=== PATIENT | male | born 1965 | race Caucasian/White ===

== ENCOUNTER 2021-09-01 13:36 | Emergency (ER) | payer BC, SELFPAY ==
[2021-09-01 13:52] VITALS: BP 101/70; PULSE 104; RESP 18; TEMP 37.9; O2SAT 96; BMI 30.5
--- NOTE | 2021-09-01 13:57 | PC.NURSE ---
review with Dr. Kc about repeating COVID test. attempt to call [facility] for results
--- NOTE | 2021-09-01 15:37 | XRR_ITS ---
PROCEDURE INFORMATION: Exam: XR Chest Exam date and time: 09/01/2021 3:37 PM Age: 56 years old Clinical indication: Shortness of breath; Additional info: Evaluate for covid pna TECHNIQUE: Imaging protocol: XR of the chest. Views: 1 view. Other technique: Frontal portable upright view of the chest. COMPARISON: No relevant prior studies available. FINDINGS: Lungs: Moderate pulmonary hypoexpansion. Mild central right upper lobe pulmonary infiltrates. The pulmonary vasculature is normal. Pleural spaces: No pleural effusion. No pneumothorax. Heart/Mediastinum: The heart is normal in size and contour. Bones/joints: No acute abnormality identified. XR/XR chest 1V portable [id number] IMPRESSION: 1. Moderate pulmonary hypoexpansion. 2. Mild central right upper lobe pulmonary infiltrates. Pneumonitis, including viral pneumonitis, is difficult to exclude. Clinical correlation is recommended.
--- NOTE | 2021-09-01 15:41 | W.ED.GENADLT ---
HPI - General Adult General: Chief complaint: Infusion: Covid MCA Stated complaint: Covid+, trouble breathing Time Seen by Provider: 09/01/21 15:22 History of Present Illness: HPI narrative: CC: Shortness of breath, fever and generalized weakness HPI: This is a 56 yo patient w/ hx of HTN presenting to the ED with malaise, generalized weakness, cough sputum production, and fever at home x 6days. Since onset of symptoms, has had some shortness of breath and decreased PO intake. Reports nausea and vomiting but denies diarrhea. Denies chest pain, diaphoresis, other GI or complaints. Denies any pleuritic chest pain, recent surgery/immobilization/travel, or hematemesis or hx of VTE in the past. Onset: 6 days ago Duration: ongoing for the last 6 days Location: home Severity: moderate Review of Systems Narrative: Constitutional: +subjective fever, +generalized weakness HEENT: No vision changes CV: No chest pain, no palpitations PULM: +cough, +dyspnea. GI: No abdominal pain, +N/+V/-D. : No dysuria MSKEL: No muscle pain SKIN: No new rashes, no lesions. NEURO: No headache, no focal weakness. HEME: No visible bruises PSYCH: Normal mood Physical Exam Narrative: EXAM NARRATIVE: Head: Atraumatic Eyes: PERRL, conjunctiva without injection ENT: Dry membrane moist NECK: Supple without lymphadenopathy LUNGS: +Coarse lung sounds, no increased work of breathing CV: RRR ABDOMEN: Soft, nontender in all quadrants, no guarding or rebound tenderness EXTREMITY: Normal ROM SKIN: No rash or erythema NEURO: Awake and alert. No focal motor deficits. PSYCH: Normal mood and affect. Course Vital Signs: Vital signs: Vital Signs Temperature 100.3 F H 09/01/21 13:52 Pulse Rate 98 09/01/21 18:02 Respiratory Rate 15 09/01/21 18:02 Blood Pressure 107/64 09/01/21 18:02 Pulse Oximetry 95 09/01/21 18:02 MDM - General Adult MDM Narrative: Medical decision making narrative: [56]yo patient presenting to the ED with shortness of breath, cough, and malaise concerning for pneumonia with findings of fever, decreased/junky breath sounds, and tachypnea. Workup today includes XR chest Defer lab work at this time given that the patient is well appearing with stable vital signs and without recent hospitalization or care facility stay. Given History, Exam, and Workup presentation most consistent with pneumonia.Presentation not consistent with PE, COPD exacerbation, Pneumothorax, TB, Atypical ACS, Esophageal Rupture, Toxic Exposure, Foreign Body Airway Obstruction. Workup: CXR Chest, COVID antigen/ COVID PCR send out Intervention: Tylenol 1gram, PO challenge, serial reassessment, oxygen On reassessment, patient is afebrile currently. Patient continues to be in no respiratory distress with sats sats > 95% without requirements of oxygen in the emergency department. I have offered patient monoclonal antibody (MCA) infusion since patient fulfills the following criteria: COVID+, symptom < 10 days, weight > 88lbs, age >12, NOT requiring additional oxygen compared to baseline. In addition, patient has met one or more of the following criteria including following for EUA of BAM: 1. any medical condition or other factor (including race, ethnicity, social/health care access inequality that puts patient at high risk for progression of disease), 2. obesity (BMI > 25), 3. , 4. CKD, 5. DM, 6. Immunocompromise, 7. cardiovascular disease/HTN, 8. Chronic lung disease, 9. SCD, 10. Neurodevelopmental disorder, 11. Chronic medical-related technological dependence (trach/g-tube/home CPAP), disability, and age >= 65. I have discussed with patient the risks, benefits, and alternatives of obtaining MCA infusion from the MCA consent sheets in detail, and patient agrees with plan for infusion. Patient verbalizes understandings of the risks and alternatives to obtaining BAM infusion today. Patient received BAM infusion in the Ed. Disposition: BAM infusion and discharge home. I have given patient strict return precautions for any complications relating to BAM therapy Imaging Data^: Other Imaging: Radiologist's impression: [id number] [place], [place] [address]RKqj ReportSigned Patient: Klever Dumas #: [id number]: [id number]#:[id number]/Sex: 56 / MADM Date: 09/01/21Loc: ERRoom/Bed:Attending Dr: Ordering Provider/Ordering MD: Snehal Kc MD Date of Service: 09/01/21 Procedure(s): XR chest 1V portable [id number] Accession Number(s): [id number] Report Number: [id number] PROCEDURE INFORMATION: Exam: XR Chest Exam date and time: 09/01/2021 3:37 PM Age: 56 years old Clinical indication: Shortness of breath; Additional info: Evaluate for covid pna TECHNIQUE: Imaging protocol: XR of the chest. Views: 1 view. Other technique: Frontal portable upright view of the chest. COMPARISON: No relevant prior studies available. FINDINGS: Lungs: Moderate pulmonary hypoexpansion. Mild central right upper lobe pulmonary infiltrates. The pulmonary vasculature is normal. Pleural spaces: No pleural effusion. No pneumothorax. Heart/Mediastinum: The heart is normal in size and contour. Bones/joints: No acute abnormality identified. XR/XR chest 1V portable [id number] IMPRESSION: 1. Moderate pulmonary hypoexpansion. 2. Mild central right upper lobe pulmonary infiltrates. Pneumonitis, including viral pneumonitis, is difficult to exclude. Clinical correlation is recommended. Dictated By:Kamran Woo MDSigned By:Kamran Woo MDSigned Date/Time:09/02/21 [id number]/ 1004 Discharge Plan Discharge Patient Disposition: Home Clinical Impression: COVID-19, Fever, Nausea & vomiting Condition: Stable Prescriptions: New Zofran 4 mg tablet 4 mg PO TID PRN (Reason: nausea and vomiting) 4 Days Qty: 12 RF: 0 acetaminophen 500 mg tablet 500 mg PO Q6H PRN (Reason: fever) 5 Days Qty: 20 RF: 0 Discharge Orders: Discharge ED (Routine); Ordered 09/01/21 Ordered By: Snehal Kc Discharge Diet: Advance as tolerated Discharge Activity: Resume usual activity Patient Instructions: SARS (Severe Acute Respiratory Syndrome) (ED) Activity Restrictions/Additional Instructions: Come back to the emergency room if your symptoms worsen, have any shortness of breath, fever/chills, dehydration, inability tolerate p.o., any difficulty breathing, or any new or concerning complaints. Coding Level of Care Code ED [employer] for [employer] Sherman
[2021-09-01] MEDS: acetaminophen 500 mg Tablet 1000 MG PO (16:16)
[2021-09-01] MEDS: ondansetron 4 MG Tablet PO (16:16)
[2021-09-01 16:26] VITALS: BP 107/72; BP 98/70; PULSE 73; PULSE 78; RESP 18; O2SAT 95; O2SAT 98
[2021-09-01 16:29] VITALS: O2SAT 95
[2021-09-01 18:02] VITALS: BP 107/64; PULSE 98; RESP 15; O2SAT 95
--- NOTE | 2021-09-05 14:50 | PC.SOCIAL ---
antibody infusion follow up call continues to have a cough but better overall. no fever x3 days, body aches gone, denies shortness of breath.
== END 2021-09-01 18:02 | disposition home or self-care (01) ==
PROVIDERS: Emergency Provider Emergency Medicine
DX: U07.1 COVID-19 (principal)
CPT/HCPCS: 71045; 96365; 99284; Q0162